=== PATIENT | female | born 1995 | race Caucasian/White ===

== ENCOUNTER 2017-11-24 02:38 | Emergency (ER) | payer OTHER ==
[2017-11-24] MEDS ORDERED: Lidocaine Viscous Sol 2% 15 ml UD Cup ONE (03:25)
[2017-11-24 03:39] LABS: Bilirubin Negative (Negative); Blood, Urine Moderate (Negative); Glucose, Urine (Dipstick) Negative (Negative); Leukocyte Negative (Negative); Nitrite Negative (Negative); Protein, Urine (Dipstick) Trace mg/dL (Neg-Trace)
[2017-11-24 03:47] LABS: Clarity Hazy (Clear); Pregnancy Test - Urine (BHCG) Negative (Negative); Pregu Control Background? CLEAR/WHITE (CLR/WHITE); Pregu Control Bar Appear? YES (CONTROL BAR)
[2017-11-24 03:48] LABS: Bacteria/HPF 1+ HPF (None Seen)
[2017-11-24] MEDS ORDERED: Sulfameth/Trimethoprim DS 800-160mg TAB ONE (04:00)
== END 2017-11-24 04:05 | disposition home or self-care (01) ==
LOC: MADERS 02:38 → EDUNIT# 02:38 → MADERS 04:05
DX: K64.4 Residual hemorrhoidal skin tags (principal); K64.8 Other hemorrhoids; N39.0 Urinary tract infection, site not specified
CPT/HCPCS: 81001; 81025; 87086; 99283

== ENCOUNTER 2018-01-20 23:34 | Emergency (ER) | payer SELFPAY | END 2018-01-21 00:18 | disposition home or self-care (01) | LOC: MADERS 23:34 | DX: K64.4 Residual hemorrhoidal skin tags (principal) | CPT/HCPCS: 99283 ==

== ENCOUNTER 2018-11-29 16:05 | Emergency (ER) | payer SELFPAY | END 2018-11-29 17:12 | disposition home or self-care (01) | LOC: MADERS 16:05 | DX: B00.1 Herpesviral vesicular dermatitis (principal); N75.8 Other diseases of Bartholin's gland; Z79.899 Other long term (current) drug therapy | CPT/HCPCS: 99283 ==

== ENCOUNTER 2019-04-06 10:15 | Emergency (ER) | payer MEDICAID, OTHER | END 2019-04-06 10:48 | disposition home or self-care (01) | LOC: MADERS 10:15 | DX: J01.90 Acute sinusitis, unspecified (principal) | CPT/HCPCS: 99283 ==

== ENCOUNTER 2019-04-10 20:20 | Emergency (ER) | payer OTHER ==
[~2019-04-10 20:20] MED LIST: Crotalidae Polyvalent Antivenin 1 GM VIAL ONE
[2019-04-10 20:35] LABS: #Lymphocytes 2.1 thou/uL (1.20-3.40); #Monocytes 0.8 thou/uL (0.11-0.59); #Neutrophils 9.1 thou/uL (1.40-6.50); %Basophils 0.3 % (0.0-1.0); %Lymphocytes 17.4 % (21.0-51.0); %Monocytes 6.9 % (0.0-10.0); %Neutrophils 75.4 % (42.0-75.0); Hemoglobin 13.3 g/dL (12.0-16.0); Mean Corpuscular HGB CONC 34.3 g/dL (32.0-36.0); Mean Corpuscular Hemoglobin 28.9 pg (27.0-31.0); Mean Corpuscular Volume 84.5 fL (78.0-98.0); Mean Platelet Volume 5.7 fL (7.4-10.4); Platelet Count 278 thou/uL (130-400); RBC Distribution Width 11.6 % (11.5-14.5)
[2019-04-10] MEDS ORDERED: Crotalidae Polyvalent Antivenin 1 GM VIAL ONE ×2 (20:36→20:44)
[2019-04-10] MEDS ORDERED: Sodium Chloride 0.9% 1,000 ML ONE (20:39)
[2019-04-10] MEDS ORDERED: Adacel (T-DAP) 0.5 ML SYRINGE ONE (20:41)
[2019-04-10 20:43] LABS: INR-International Normal Ratio 1.1; PTT 26.9 SEC (22.9-36.1)
[2019-04-10] MEDS ORDERED: Sodium Chloride 0.9% 100 ML ONE (20:49)
[2019-04-10 20:53] LABS: Anion Gap 16 mmol/L (10-20); BUN (Urea Nitrogen) 20 mg/dL (7.0-18.7); CK (CPK) 24 U/L (29-168); Calc. Creatinine Clearance 0 mL/min (70-130); Calcium 9.3 mg/dL (7.8-10.44); Carbon Dioxide 25 mmol/L (22-29); Chloride 106 mmol/L (98-107); Estimated GFR-MDRD 87; Glucose 95 mg/dL (70-105); Potassium 3.8 mmol/L (3.5-5.1); Sodium 143 mmol/L (136-145)
[2019-04-10] MEDS ORDERED: Sodium Chloride 0.9% 250 ML 250 ML ONE (20:58)
[2019-04-10] MEDS ORDERED: Morphine 4 MG/ML VIAL ONE (21:16)
== END 2019-04-10 21:31 | disposition short-term general hospital (02) ==
LOC: MADERS 20:20
DX: T63.001A Toxic effect of unspecified snake venom, accidental (unintentional), initial encounter (principal)
CPT/HCPCS: 80048; 82550; 85025; 85384; 85610; 85730; 86850; 86900; 86901; 90471; 90715; 96374; 96375; J0840; J2270; J3490; J7050

== ENCOUNTER 2019-07-30 21:19 | Emergency (ER) | payer OTHER ==
[2019-07-30] MEDS ORDERED: Acyclovir 200 mg Capsule ONE ×2 (21:50)
== END 2019-07-30 21:53 | disposition home or self-care (01) ==
LOC: MADERS 21:19
DX: B00.9 Herpesviral infection, unspecified (principal)
CPT/HCPCS: 99282

== ENCOUNTER 2020-06-24 21:24 | Emergency (ER) | payer MEDICAID ==
[2020-06-24] MEDS ORDERED: Azithromycin 250 MG TAB ONE (22:19)
[2020-06-25 18:33] LABS: SARS-CoV-2 MS2 Positive; SARS-CoV-2 N Gene Negative; SARS-CoV-2 S Gene Negative; SARS-CoV-2 by NAA Not Detected (NotDetected); SARS-CoV-2 orf1ab Negative
== END 2020-06-24 22:25 | disposition home or self-care (01) ==
LOC: MADERS 21:24
DX: J02.9 Acute pharyngitis, unspecified (principal); Z20.828 Contact with and (suspected) exposure to other viral communicable diseases; Z79.899 Other long term (current) drug therapy
CPT/HCPCS: 87430; 87635; U0003

== ENCOUNTER 2021-05-27 11:56 | Emergency (ER) | payer OTHER | END 2021-05-27 13:00 | disposition home or self-care (01) | LOC: MADERS 11:56 | DX: R21 Rash and other nonspecific skin eruption (principal) | CPT/HCPCS: 99282 ==

== ENCOUNTER 2021-06-02 12:48 | Emergency (ER) | payer OTHER ==
[2021-06-02] MEDS ORDERED: Morphine 4 MG/ML VIAL ONE (13:38)
[2021-06-02 14:01] LABS: #Basophils 0.1 thou/uL (0.0-0.2); #Eosinphils 0.1 thou/uL (0.0-0.7); #Lymphocytes 2.4 thou/uL (1.20-3.40); #Neutrophils 6.5 thou/uL (1.40-6.50); %Eosinophils 1.4 % (0.0-10.0); %Lymphocytes 23.7 % (21.0-51.0); %Monocytes 9.6 % (0.0-10.0); %Neutrophils 64.4 % (42.0-75.0); Hemoglobin 13.1 g/dL (12.0-16.0); Mean Corpuscular HGB CONC 33.1 g/dL (32.0-36.0); Mean Corpuscular Hemoglobin 28.8 pg (27.0-31.0); Mean Corpuscular Volume 87.2 fL (78.0-98.0); Mean Platelet Volume 6.1 fL (7.4-10.4); Platelet Count 323 thou/uL (130-400); RBC Distribution Width 11.1 % (11.5-14.5); Red Blood Cell (RBC) Count 4.53 mill/uL (4.20-5.40); White Blood Cell (WBC) Count 10.2 thou/uL (4.8-10.8)
[2021-06-02 14:12] LABS: Prothrombin Time 13.6 sec (12.0-14.7)
[2021-06-02 14:13] LABS: PTT 26.1 sec (22.9-36.1)
[2021-06-02 14:19] LABS: BHCG - Serum Negative (NEGATIVE); Pregs Control Background? CLEAR/WHITE (CLR/WHITE); Pregs Control Bar Appear? YES (CONTROL BAR)
[2021-06-02 14:20] LABS: ALT (SGPT) 30 U/L (8-55); AST (SGOT) 24 U/L (5-34); Albumin 4.1 g/dL (3.5-5.0); Alkaline Phosphatase 82 U/L (40-110); Anion Gap 13 mmol/L (10-20); BUN (Urea Nitrogen) 11 mg/dL (7.0-18.7); Bilirubin, Total 0.3 mg/dL (0.2-1.2); Calc. Creatinine Clearance 0 mL/min (70-130); Calcium 9.7 mg/dL (7.8-10.44); Carbon Dioxide 23 mmol/L (22-29); Chloride 109 mmol/L (98-107); Globulin 3.2 g/dL (2.4-3.5); Glucose 91 mg/dL (70-105); Potassium 3.6 mmol/L (3.5-5.1); Protein, Total 7.3 g/dL (6.0-8.3); Sodium 141 mmol/L (136-145)
[2021-06-02 14:55] LABS: Bilirubin Negative (Negative); Blood, Urine Trace (Negative); Glucose, Urine (Dipstick) Negative (Negative); Ketone, Urine Negative (Negative); Leukocyte Negative (Negative); Nitrite Negative (Negative); Protein, Urine (Dipstick) Negative (Neg-Trace); Specific Gravity, Urine 1.015 (1.005-1.030); Urobilinogen 0.2 mg/dL (Less than 2); pH, Urine 7.5 (5.0-9.0)
[2021-06-02 14:58] LABS: Clarity Hazy (Clear)
[2021-06-02 15:01] LABS: Bacteria/HPF Rare-Few HPF (None Seen); RBC/HPF 0-3 HPF (0-3); WBC/HPF None Seen HPF (0-3)
[2021-06-02] MEDS ORDERED: Acetaminophen 500 MG TAB ONE (15:28)
[2021-06-02 17:58] LABS: #Basophils 0.1 thou/uL (0.0-0.2); #Eosinphils 0.1 thou/uL (0.0-0.7); #Lymphocytes 2.6 thou/uL (1.20-3.40); #Monocytes 0.8 thou/uL (0.11-0.59); #Neutrophils 6.4 thou/uL (1.40-6.50); %Basophils 1.2 % (0.0-1.0); %Eosinophils 1.2 % (0.0-10.0); %Lymphocytes 25.9 % (21.0-51.0); %Monocytes 8.3 % (0.0-10.0); %Neutrophils 63.4 % (42.0-75.0); Hemoglobin 12.8 g/dL (12.0-16.0); Mean Corpuscular HGB CONC 33.2 g/dL (32.0-36.0); Mean Corpuscular Hemoglobin 29.2 pg (27.0-31.0); Mean Corpuscular Volume 88.1 fL (78.0-98.0); Mean Platelet Volume 6.1 fL (7.4-10.4); Platelet Count 312 thou/uL (130-400); RBC Distribution Width 11.3 % (11.5-14.5); Red Blood Cell (RBC) Count 4.39 mill/uL (4.20-5.40); White Blood Cell (WBC) Count 10.1 thou/uL (4.8-10.8)
[2021-06-02 18:06] LABS: INR-International Normal Ratio 1.1; Prothrombin Time 13.8 sec (12.0-14.7)
[2021-06-02 18:07] LABS: BHCG - Serum Negative (NEGATIVE); PTT 27.3 sec (22.9-36.1); Pregs Control Background? CLEAR/WHITE (CLR/WHITE); Pregs Control Bar Appear? YES (CONTROL BAR)
[2021-06-02 18:16] LABS: ALT (SGPT) 29 U/L (8-55); AST (SGOT) 23 U/L (5-34); Alkaline Phosphatase 76 U/L (40-110); Anion Gap 13 mmol/L (10-20); BUN (Urea Nitrogen) 9 mg/dL (7.0-18.7); Bilirubin, Total 0.4 mg/dL (0.2-1.2); Calc. Creatinine Clearance 0 mL/min (70-130); Calcium 9.4 mg/dL (7.8-10.44); Carbon Dioxide 24 mmol/L (22-29); Chloride 108 mmol/L (98-107); Globulin 3.2 g/dL (2.4-3.5); Glucose 98 mg/dL (70-105); Potassium 4.1 mmol/L (3.5-5.1); Protein, Total 7.2 g/dL (6.0-8.3); Sodium 141 mmol/L (136-145)
== END 2021-06-02 18:40 | disposition home or self-care (01) ==
LOC: MADERS 12:48
DX: T63.001A Toxic effect of unspecified snake venom, accidental (unintentional), initial encounter (principal)
CPT/HCPCS: 36415; 80053; 81003; 81015; 83735; 84703; 85025; 85610; 85730; 93005; 96372; J2270

== ENCOUNTER 2022-01-22 14:09 | Emergency (ER) | payer OTHER | END 2022-01-22 14:58 | disposition home or self-care (01) | LOC: MADERS 14:09 | DX: T78.40XA Allergy, unspecified, initial encounter (principal) | CPT/HCPCS: 99283 ==

== ENCOUNTER 2022-02-19 20:29 | Emergency (ER) | payer OTHER ==
[2022-02-19] MEDS ORDERED: Ibuprofen 400 MG TAB ONE (21:48)
[2022-02-19] MEDS ORDERED: Clindamycin 150 MG CAP ONE (21:48)
== END 2022-02-19 21:53 | disposition home or self-care (01) ==
LOC: MADERS 20:29
DX: H60.11 Cellulitis of right external ear (principal); H66.92 Otitis media, unspecified, left ear; Z79.899 Other long term (current) drug therapy
CPT/HCPCS: 99283

== ENCOUNTER 2022-03-19 11:22 | Emergency (ER) | payer OTHER ==
[2022-03-19 12:49] LABS: #Basophils 0.1 thou/uL (0.0-0.2); #Eosinphils 0.1 thou/uL (0.0-0.7); #Lymphocytes 1.7 thou/uL (1.20-3.40); #Monocytes 0.5 thou/uL (0.11-0.59); #Neutrophils 4.6 thou/uL (1.40-6.50); %Basophils 1.2 % (0.0-1.0); %Monocytes 7.6 % (0.0-10.0); %Neutrophils 65.2 % (42.0-75.0); Hemoglobin 12.6 g/dL (12.0-16.0); Mean Corpuscular HGB CONC 32.4 g/dL (32.0-36.0); Mean Corpuscular Hemoglobin 28.8 pg (27.0-31.0); Mean Platelet Volume 7.6 fL (7.4-10.4); Platelet Count 249 thou/uL (130-400); RBC Distribution Width 11.1 % (11.5-14.5); Red Blood Cell (RBC) Count 4.35 mill/uL (4.20-5.40)
[2022-03-19 13:08] LABS: ALT (SGPT) 19 U/L (8-55); AST (SGOT) 19 U/L (5-34); Alkaline Phosphatase 74 U/L (40-110); Anion Gap 12 mmol/L (10-20); BUN (Urea Nitrogen) 14 mg/dL (7.0-18.7); Bilirubin, Total 0.3 mg/dL (0.2-1.2); CK (CPK) 42 U/L (29-168); Calc. Creatinine Clearance 0 mL/min (70-130); Calcium 9.4 mg/dL (7.8-10.44); Carbon Dioxide 24 mmol/L (22-29); Chloride 109 mmol/L (98-107); Estimated GFR 121; Globulin 3.1 g/dL (2.4-3.5); Glucose 92 mg/dL (70-105); Potassium 4.5 mmol/L (3.5-5.1); Protein, Total 7.1 g/dL (6.0-8.3); Sodium 140 mmol/L (136-145)
[2022-03-19] MEDS ORDERED: metroNIDAZOLE 250 MG TAB ONE (13:26)
== END 2022-03-19 13:31 | disposition home or self-care (01) ==
LOC: MADERS 11:22
DX: K52.9 Noninfective gastroenteritis and colitis, unspecified (principal)
CPT/HCPCS: 36415; 74022; 80053; 82550; 85025; 99284

== ENCOUNTER 2022-08-03 12:49 | Emergency (ER) | payer OTHER ==
[2022-08-03 14:43] LABS: Bilirubin Negative (Negative); Blood, Urine Trace (Negative); Clarity Clear (Clear); Glucose, Urine (Dipstick) Negative (Negative); Ketone, Urine Negative (Negative); Leukocyte Negative (Negative); Nitrite Negative (Negative); Protein, Urine (Dipstick) Negative (Neg-Trace); Urobilinogen 0.2 mg/dL (Less than 2)
[2022-08-03 14:52] LABS: Bacteria/HPF Rare-Few HPF (None Seen); Squamous Epithelial 0-3 HPF (0-3); WBC/HPF 0-3 HPF (0-3)
[2022-08-04 12:39] LABS: Chlamydia by PCR Not Detected (NotDetected); GC by PCR Not Detected (NotDetected)
== END 2022-08-03 15:56 | disposition home or self-care (01) ==
LOC: MADERS 12:49
DX: N76.1 Subacute and chronic vaginitis (principal)
CPT/HCPCS: 81003; 81015; 87480; 87491; 87510; 87591; 87660; 99283

== ENCOUNTER 2022-08-11 15:21 | Emergency (ER) | payer OTHER | END 2022-08-11 17:00 | disposition left against medical advice (07) | LOC: MADERS 15:21 | DX: Z53.21 Procedure and treatment not carried out due to patient leaving prior to being seen by health care provider (principal) ==

== ENCOUNTER 2023-07-23 22:50 | Emergency (ER) | payer OTHER ==
[2023-07-24] MEDS ORDERED: Dexamethasone 10 MG/ML VIAL ONE (00:19)
[2023-07-24] MEDS ORDERED: HYDROcodone/Acetaminophen 10/325 mg Tablet ONE (00:20)
[2023-07-24] MEDS ORDERED: Ketorolac Tromethamine 60 MG/2 ML VIAL ONE (00:20)
== END 2023-07-24 00:59 | disposition home or self-care (01) ==
LOC: MADERS 22:50
DX: S39.012A Strain of muscle, fascia and tendon of lower back, initial encounter (principal); X50.0XXA Overexertion from strenuous movement or load, initial encounter; Y93.F2 Activity, caregiving, lifting; Y92.69 Other specified industrial and construction area as the place of occurrence of the external cause
CPT/HCPCS: 96372; 99283; J1100; J1885

== ENCOUNTER 2023-07-27 13:41 | Emergency (ER) | payer OTHER | END 2023-07-27 15:13 | disposition home or self-care (01) | LOC: MADERS 13:41 | DX: B34.9 Viral infection, unspecified (principal) | CPT/HCPCS: 87081; 87430; 87804; 99283 ==

== ENCOUNTER 2023-12-13 22:13 | Emergency (ER) | payer OTHER ==
[2023-12-13 23:35] LABS: Band 1 % (5-11); Eosinophils 2 % (0-10); Hematocrit 38.1 % (36.0-47.0); Hemoglobin 12.2 g/dL (12.0-16.0); Lymphocytes 49 % (21-51); MDiff Complete? YES; Mean Corpuscular Hemoglobin 28.4 pg (27.0-31.0); Mean Corpuscular Volume 88.7 fl (78.0-98.0); Mean Platelet Volume 5.7 fL (7.4-10.4); Monocytes 10 % (0-10); Neutrophil 38 % (42-75); Platelet Count 213 10x3/uL (130-400); RBC Distribution Width 12.2 % (11.5-14.5); Red Blood Cell (RBC) Count 4.29 mill/uL (4.20-5.40); White Blood Cell (WBC) Count 6.9 10x3/uL (4.8-10.8)
[2023-12-13 23:37] LABS: Anion Gap 13 mmol/L (10-20); BUN (Urea Nitrogen) 15 mg/dL (7.0-18.7); Calc. Creatinine Clearance 0 mL/min (70-130); Calcium 8.9 mg/dL (7.8-10.44); Carbon Dioxide 23 mmol/L (22-29); Chloride 111 mmol/L (98-107); Estimated GFR 108; Glucose 80 mg/dL (70-105); Potassium 3.8 mmol/L (3.5-5.1); Sodium 143 mmol/L (136-145)
[2023-12-13 23:41] LABS: Bilirubin Negative (Negative); Blood, Urine Small (Negative); Glucose, Urine (Dipstick) Negative (Negative); Ketone, Urine Trace mg/dL (Negative); Leukocyte Trace (Negative); Nitrite Negative (Negative); Protein, Urine (Dipstick) Negative (Neg-Trace)
[2023-12-13 23:43] LABS: Bacteria/HPF 1+ HPF (None Seen); CAUTI Indications for Culture Dysuria,urgency,freq; Clarity Cloudy (Clear); Mucous/LPF 3+ LPF (<2+); Specific Gravity, Urine 1.027 (1.002-1.036); WBC/HPF 21-50 HPF (0-3)
[2023-12-13 23:44] LABS: Urine Culture Reflex Yes Yes
[2023-12-13] MEDS ORDERED: cefTRIAXone (ROCEPHIN) 1 GM VIAL ONE (23:49)
[2023-12-13] MEDS ORDERED: Lidocaine 1% PF 5 ML VIAL ONE (23:49)
== END 2023-12-14 00:50 | disposition home or self-care (01) ==
LOC: MADERS 22:13
DX: N39.0 Urinary tract infection, site not specified (principal); R33.9 Retention of urine, unspecified
CPT/HCPCS: 36415; 51701; 80048; 81001; 85025; 87086; 96372; J0696

== ENCOUNTER 2024-08-18 21:17 | Emergency (ER) | payer OTHER ==
[2024-08-18] MEDS ORDERED: Ibuprofen 800 MG TAB ONE (22:07)
[2024-08-18] MEDS ORDERED: Acetaminophen 500 MG TAB ONE (22:07)
[2024-08-18] MEDS ORDERED: Proctozone-HC 30 GM TUBE TOP SCH (22:30)
== END 2024-08-18 22:35 | disposition home or self-care (01) ==
LOC: MADERS 21:17
DX: L85.3 Xerosis cutis (principal); L53.9 Erythematous condition, unspecified; T49.0X5A Adverse effect of local antifungal, anti-infective and anti-inflammatory drugs, initial encounter; A60.00 Herpesviral infection of urogenital system, unspecified
CPT/HCPCS: 99283